=== PATIENT | female | born 1995 | race Caucasian/White ===

== ENCOUNTER 2019-06-15 17:02 | Emergency (ER) | payer BC ==
--- NOTE | 2019-06-15 18:04 | ER Document Report ---
HPI - HPI Patient complains to provider of: Shortness of breath chest pain Time Seen by Provider: 06/15/19 17:08 Onset: Other - As of breath 3 to 4 days ago chest pain yesterday Quality of pain: Other - Crushing Context: 23-year-old female with history of sports induced asthma presents to the emergency department with complaints of shortness of breath for the past 3 to 4 days and chest pain that started yesterday. She reports it feels like her chest wall is crushed. She reports a little bit of cough little bit of sore throat and some runny nose. She reports some diarrhea. Denies fever vomiting. Reports last week she went to the [place] into [facility] and then back home to [facility]. Unknown CovID exposure. She did not receive the flu vaccine this year. She reports she feels warm but she is experiencing chills. Associated Symptoms: Nonproductive cough Exacerbated by: Denies Relieved by: Denies Similar symptoms previously: No Recently seen / treated by doctor: No Past Medical History - General Information source: Patient Last Menstrual Period: Middle may - Social History Smoking Status: Current Every Day Smoker Cigarette use (# per day): No - Patient vapes Frequency of alcohol use: None Drug Abuse: None Occupation: Unemployed Lives with: Family Family History: None Patient has suicidal ideation: No Patient has homicidal ideation: No Pulmonary Medical History: Reports: Hx Asthma - SPorts induced Psychiatric Medical History: Reports: Hx Schizoaffective Disorder Vertical Provider Document - CONSTITUTIONAL Agree With Documented VS: Yes Exam Limitations: No Limitations General Appearance: WD/WN, No Apparent Distress - Nontoxic looking - INFECTION CONTROL TRAVEL OUTSIDE OF THE [place] IN LAST 30 DAYS: No - NECK Neck: Supple - RESPIRATORY Respiratory: No Respiratory Distress - CARDIOVASCULAR Cardiovascular: Regular Rate - MUSCULOSKELETAL/EXTREMETIES Musculoskeletal/Extremeties: MAEW, FROM - NEURO Level of Consciousness: Awake, Alert, Appropriate Motor/Sensory: No Motor Deficit - DERM Integumentary: Warm, Dry, No Rash - No visual rash Course - Re-evaluation Re-evalutation: 06/15/19 19:11 Full physical exam could not be performed due to COVID-19 isolation protocols. Patient is speaking in a clear voice no distress. EKG sinus rhythm no ST elevation no T wave inversion Chest x-ray negative with no acute findings Labs unremarkable no fever vomiting or diarrhea. Flu test negative Patient will be discharged home with strict instructions to return for any worsening symptoms. Instructed on good handwashing, social distancing, longterm in place. Chest X-Ray 06/15/19 17:59 IMPRESSION: NO ACUTE RADIOGRAPHIC FINDING IN THE CHEST. Laboratory 06/15/19 06/15/19 06/15/19 17:10 17:10 17:10 WBC 8.8 RBC 4.76 Hgb 15.0 Hct 42.5 MCV 89 MCH 31.5 MCHC 35.3 RDW 14.1 H Plt Count 272 Lymph % (Auto) 27.1 [place] % (Auto) 6.1 Eos % (Auto) 0.7 Baso % (Auto) 0.5 Absolute Neuts (auto) 5.7 Absolute Lymphs (auto) 2.4 Absolute Monos (auto) 0.5 Absolute Eos (auto) 0.1 Absolute Basos (auto) 0.0 Seg Neutrophils % 65.6 D-Dimer < 0.27 Sodium Potassium Chloride Carbon Dioxide Anion Gap BUN Creatinine Est GFR ( Amer) Est GFR (MDRD) Non-Af Glucose Calcium Total Bilirubin Direct Bilirubin Neonat Total Bilirubin Neonat Direct Bilirubin Neonat Indirect Bili AST ALT Alkaline Phosphatase Total Protein Albumin Serum HCG, Qual Influenza A (Rapid) NEGATIVE Influenza B (Rapid) NEGATIVE 06/15/19 06/15/19 17:10 17:10 WBC RBC Hgb Hct MCV MCH MCHC RDW Plt Count Lymph % (Auto) [place] % (Auto) Eos % (Auto) Baso % (Auto) Absolute Neuts (auto) Absolute Lymphs (auto) Absolute Monos (auto) Absolute Eos (auto) Absolute Basos (auto) Seg Neutrophils % D-Dimer Sodium 138.5 Potassium 4.4 Chloride 105 Carbon Dioxide 20 L Anion Gap 14 BUN 13 Creatinine 0.66 Est GFR ( Amer) > 60 Est GFR (MDRD) Non-Af > 60 Glucose 144 H Calcium 10.3 H Total Bilirubin 0.5 Direct Bilirubin 0.0 Neonat Total Bilirubin Not Reportable Neonat Direct Bilirubin Not Reportable Neonat Indirect Bili Not Reportable AST 23 ALT 13 Alkaline Phosphatase 105 Total Protein 8.2 Albumin 4.9 Serum HCG, Qual NEGATIVE Influenza A (Rapid) Influenza B (Rapid) 06/15/19 20:10 - Vital Signs Vital signs: Temp Pulse Resp BP Pulse Ox 97.9 F 18 123/79 100 06/15/19 17:15 06/15/19 17:15 06/15/19 17:15 06/15/19 17:15 - Laboratory Result Diagrams: 06/15/19 17:10 06/15/19 17:10 - Diagnostic Test Radiology reviewed: Reports reviewed - EKG Interpretation by Me EKG shows normal: Sinus rhythm Rate: Normal Rhythm: NSR Additional EKG results interpreted by me: 06/15/19 21:[address] elevation no T wave inversion Discharge - Discharge Clinical Impression: Shortness of breath, Cough Chest pain Qualifiers: Chest pain type: unspecified Qualified Code(s): R07.9 - Chest pain, unspecified Condition: Stable Disposition: HOME, SELF-CARE Additional Instructions: *You have been evaluated for shortness of breath, chest pain, cough Your labs were unremarkable. Your influenza test was negative Increase your fluids, monitor you temperature, take tylenol or motrin as indicated Make sure you are washing your hands good, longterm in place, practice social distancing *Follow up with a primary care provider within 3-5 days *Return to ED for worsening condition, changes, needs, difficulty breathing, concerns
[2019-06-15 18:47] LABS: A TYPE INFLUENZA AG NEGATIVE (NEGATIVE); B INFLUENZA AG NEGATIVE (NEGATIVE)
--- NOTE | 2019-06-15 18:54 | RADIOLOGY REPORT (SQ) ---
EXAM DESCRIPTION: CHEST SINGLE VIEW IMAGES COMPLETED DATE/TIME: 06/15/2019 6:43 pm REASON FOR STUDY: SOB CP COMPARISON: None. EXAM PARAMETERS: NUMBER OF VIEWS: One view. TECHNIQUE: Single frontal radiographic view of the chest acquired. RADIATION DOSE: NA LIMITATIONS: None. FINDINGS: LUNGS AND PLEURA: No opacities, masses or pneumothorax. No pleural effusion. MEDIASTINUM AND HILAR STRUCTURES: No masses. Contour normal. HEART AND VASCULAR STRUCTURES: Heart normal in size. Normal vasculature. BONES: No acute findings. HARDWARE: None in the chest. OTHER: No other significant finding. IMPRESSION: NO ACUTE RADIOGRAPHIC FINDING IN THE CHEST. TECHNICAL DOCUMENTATION: JOB ID: [id number] 2010 [employer]- All Rights Reserved Reading location - IP/workstation name: [email or web address]
[2019-06-15 19:21] LABS: ABSOLUTE EOSINOPHILS # (AUTO) 0.1 10^3/uL (0.0-0.6); ABSOLUTE LYMPHOCYTES (AUTO) 2.4 10^3/uL (0.5-4.7); ABSOLUTE MONOCYTES (AUTO) 0.5 10^3/uL (0.1-1.4); ABSOLUTE NEUT (AUTO) 5.7 10^3/uL (1.7-8.2); BASOPHILS % (AUTO) 0.5 % (0-2); EOSINOPHILS % (AUTO) 0.7 % (0-6); HEMATOCRIT 42.5 % (36.0-47.0); LYMPHOCYTES % (AUTO) 27.1 % (13-45); MEAN CORPUSCULAR HEMOGLOBIN 31.5 pg (27.0-33.4); MEAN CORPUSCULAR HGB CONC 35.3 g/dL (32.0-36.0); MEAN CORPUSCULAR VOLUME 89 fl (80-97); MONOCYTES % (AUTO) 6.1 % (3-13); PLATELET COUNT 272 10^3/uL (150-450); RED BLOOD COUNT 4.76 10^6/uL (3.72-5.28); RED CELL DISTRIBUTION WIDTH 14.1 % (11.5-14.0); SEGMENTED NEUTROPHILS % (AUTO) 65.6 % (42-78); TOTAL CELLS COUNTED % (AUTO) 100 %; WHITE BLOOD COUNT 8.8 10^3/uL (4.0-10.5)
[2019-06-15 19:47] LABS: ALBUMIN 4.9 g/dL (3.5-5.0); ALKALINE PHOSPHATASE 105 U/L (38-126); ANION GAP 14 (5-19); ASPARTATE AMINO TRANSFERASE 23 U/L (14-36); BILIRUBIN,TOTAL 0.5 mg/dL (0.2-1.3); BLOOD UREA NITROGEN 13 mg/dL (7-20); CALCIUM 10.3 mg/dL (8.4-10.2); CARBON DIOXIDE 20 mmol/L (22-30); CHLORIDE 105 mmol/L (98-107); GLUCOSE 144 mg/dL (75-110); POTASSIUM 4.4 mmol/L (3.6-5.0); TOTAL PROTEIN 8.2 g/dL (6.3-8.2)
[2019-06-15 20:36] VITALS: BP 112/74
--- NOTE | 2019-06-16 09:27 | EKG REPORT ---
SEVERITY:- NORMAL ECG - SINUS RHYTHM : Confirmed by: Sinai Vogt 16-Jun-2019 09:26:18
== END 2019-06-15 20:36 | disposition home or self-care (01) ==
LOC: ER 17:02
DX: R06.02 Shortness of breath (principal); R07.9 Chest pain, unspecified; R05 Cough; F17.200 Nicotine dependence, unspecified, uncomplicated
CPT/HCPCS: 36415; 71045; 80053; 84703; 85025; 85379; 87804; 93005; 93010; 99284